=== PATIENT | female | born 1995 | race Caucasian/White ===

== ENCOUNTER 2024-11-22 06:25 | Inpatient (IN) ==
[2024-11-22] MEDS ORDERED: AMPICILLIN VIAL 2 GRAM ONE (06:30)
[2024-11-22] MEDS ORDERED: PITOCIN ONE (06:31)
[2024-11-22] MEDS ORDERED: REGLAN INJ 10 MG VIAL IVP PRN (06:36)
[2024-11-22] MEDS ORDERED: NUBAIN INJ 20 MG AMP IVP PRN (06:36)
[2024-11-22] MEDS ORDERED: ZOFRAN INJ 4 MG VIAL IVP PRN (06:36)
[2024-11-22] MEDS ORDERED: D5 1/2 NS 1,000 ML 1,000 ML IV SCH (06:36)
[2024-11-22] MEDS: D5 1/2 NS 1,000 ML 1,000 ML IV ONE (06:43)
[2024-11-22] MEDS: AMPICILLIN VIAL 2 GRAM 2 G in NS 100 ML IV + SPIKE MINIBAG* 100 ML IV SCH (06:44)
[2024-11-22] MEDS: NS 100 ML IV 100 ML ONE (06:44)
[2024-11-22 07:07] LABS: INR 1.00 (0.8-1.3)
[2024-11-22 07:11] LABS: LACTATE DEHYDROGENASE 141.0 Units/L (81-234)
--- NOTE | 2024-11-22 07:11 | DR.OB ---
OB QUICK NOTE Assessment/Plan (1) Elective induction of labor planned: Assessment/Plan: L&D 11/22/24 at 7:00am S-No complaint. O-Afebrile,VSS GMI=710 with good LTV, +accel, no decel. CTX=none CVX=3cm/50%/-1/VTX AROM with clear fluid. IUPC and FSE placed. A-IUP at 38 4/7 weeks for induction PIH +GBS Rh- P-Begin pitocin induction F/U labs IV ABX in labor Anticipate (2) induced hypertension: (3) Group B streptococcal carriage complicating : (4) Rh negative state in antepartum period:
[2024-11-22] MEDS: OXYTOCIN 20 UNIT/1,000 ML-NS 20 UNIT/1,000 ML PLAST..BAG IV PRN (07:15)
[2024-11-22] MEDS: LR 1,000 ML IV 1,000 ML IV ONE (09:05)
[2024-11-22] MEDS ORDERED: NAROPIN EPIDURAL 0.2% 100 ML ONE (09:13)
[2024-11-22] MEDS ORDERED: FENTANYL VIAL INJ 100 mcg ONE (09:13)
[2024-11-22] MEDS ORDERED: AMPICILLIN VIAL 1 GRAM 1 G in NS 50 ML IV 50 ML IV SCH (10:00)
[2024-11-22] MEDS: PITOCIN IVP ONE (10:20)
[2024-11-22] MEDS ORDERED: MOTRIN TAB 800 MG PO PRN (10:54)
[2024-11-22] MEDS ORDERED: AMBIEN PO PRN (10:54)
[2024-11-22] MEDS ORDERED: MILK OF MAGNESIA PO PRN (10:54)
[2024-11-22] MEDS: OXYTOCIN 20 UNIT/1,000 ML-NS 20 UNIT/1,000 ML PLAST..BAG IV SCH (11:19)
[2024-11-22] MEDS: BETADINE SOLN ONE (11:20)
--- NOTE | 2024-11-22 13:08 | DR.OB ---
OB QUICK NOTE Assessment/Plan (1) Elective induction of labor planned: Assessment/Plan: Delivery Note MANAGER PURCHASING 11/22/24 at 10:18am Patient complete and pushing. Mother and stable. Head delivered over intact perineum. Nose and mouth bulb suctioned. No nuchal cord. Body delivered over intact perineum. Cord clamped x 2 and cut. Infant handed to attendant. Cord sent for gases, but cord was short in length. Placenta delivered spontaneously / intact / 3 vessel cord. No CVX / vaginal / perineal tears noted. Viable female delivered by , VTX/OA, wt=6'13" and 8/9, stable to NBN. Mother stable to RR. JBM=[id number]. (2) induced hypertension: (3) Group B streptococcal carriage complicating : (4) Rh negative state in antepartum period:
[2024-11-22] MEDS: VISBIOME PROBIOTIC CAP 112.5 B or equivalent PO SCH (13:55)
[2024-11-22] MEDS: ADACEL or BOOSTRIX TDaP VACCINE IM ONE (13:56)
[2024-11-22] MEDS: HYPERRHO S/D (or RHOGAM) IM PRN (14:30)
[2024-11-22 21:36] VITALS: RESP 18
[2024-11-23] MEDS: DERMOPLAST PAIN RELIEF SPRAY TOP PRN (05:32)
[2024-11-23] MEDS ORDERED: LEXAPRO ONE (08:05)
[2024-11-23] MEDS: PROTONIX TAB 40 MG PO SCH (08:17)
[2024-11-23] MEDS: PRENATAL PLUS PO SCH (08:17)
[2024-11-23] MEDS: LEXAPRO PO SCH (08:18)
[2024-11-23] MEDS: MOTRIN TAB 800 MG PO PRN (08:25)
[2024-11-23 08:33] VITALS: BP 128/86
[2024-11-23 08:43] VITALS: PULSE 75; TEMP 97.8; O2SAT 97
[2024-11-23] MEDS ORDERED: PROTONIX TAB 40 MG PO SCH (09:00)
== END 2024-11-23 12:00 | disposition home or self-care (01) | DRG 806 ==
LOC: LD 06:25 → MED/SURG 11:35
PROVIDERS: ADMIT Specialist; ATTEND Specialist
DX: O99.613 Diseases of the digestive system complicating pregnancy, third trimester; Z3A.38 38 weeks gestation of pregnancy; O13.4 Gestational [pregnancy-induced] hypertension without significant proteinuria, complicating childbirth; B95.1 Streptococcus, group B, as the cause of diseases classified elsewhere; Z37.0 Single live birth; K21.9 Gastro-esophageal reflux disease without esophagitis; O98.82 Other maternal infectious and parasitic diseases complicating childbirth; O99.113 Other diseases of the blood and blood-forming organs and certain disorders involving the immune mechanism complicating pregnancy, third trimester; O99.343 Other mental disorders complicating pregnancy, third trimester